=== PATIENT | female | born 1965 | race Caucasian/White ===

== ENCOUNTER 2024-05-22 13:51 | Emergency (ER) | payer SELFPAY ==
[2024-05-22 14:20] VITALS: BP 101/65
--- NOTE | 2024-05-22 14:49 | ED.MUSCINJ ---
HPI-Injury
General
Chief Complaint: Musculo-Skeletal Complaint
Source: patient
Exam Limitations: none
Time Seen by Provider: 05/22/24 14:44
Nursing documentation reviewed up to this point in time: agreed with
History of Present Illness-Injury
Initial Injury comments:
59-year-old female with no clinically significant past medical history states she missed a step at a restaurant about an hour and a half ago, fell, injuring her right ankle and her right thumb. She denies hitting her head or any other injury.
Past History
Past History
ED Past Medical History: Hypothyroidism
ED Past Surgical History: None
Social History
Tobacco: Non-smoker
Alcohol: None
Personal:
Living: with family
Employment: Employed (Realtor)
Review of Systems
Review of Systems
Allergies reviewed?: Yes
All Other Systems: ROS reviewed and negative except as documented in HPI and ROS
Musculoskeletal: Reports other (pain right ankle, right thumb)
Skin: Reports no symptoms
Musculoskeletal Injury Exam
Musculoskeletal Injury Exam
Right Lateral Ankle:
Pain with Movement?: Moderate
Tender to palpation?: Moderate
Soft tissue swelling?: Mild
Strain- Sprain- Tear (Connective tissue injury)?: Moderate
Joint instability?: No
Malalignment/deformity?: No
Range of motion: Limited
Distal skin color and temperature: normal-warm & good color
Capillary Refill: normal
Phy Exam
Physical Exam
Physical Exam:
PHYSICAL EXAMINATION:
General: no apparent distress, not acutely ill
Neuro: alert and oriented.
Psychiatric: well kept. interactive and cooperative
Musculoskeletal: Patient's right thumb is minimally tender to palpation, she has full range of motion there is no swelling. Moves with ease
Skin: Warm, pink.
Injury Course
Orders/Labs/Results
Orders:
Orders
05/22/24 14:06
Ankle, Right 3 view CR [CR Ankle - Right Min 3 Views *] Urgent
Comment:
Reason For Exam: injury
05/22/24 16:03
Jeremias Wrap Right-Treatment ONCE
Air Splint Right-Treatment ONCE
Procedures
Splint Check
Splint checked by provider?: Yes
Circulation/Movement/Sensation post splint application: brisk cap refill and full sensation
MDM/Problems Addressed
Differential Diagnosis Includes:
Sprain ankle, fractured ankle
Sprain thumb
MDM/Problems Addressed:
59-year-old female with no clinically significant past medical history states she missed a step at a restaurant about an hour and a half ago, fell, injuring her right ankle and her right thumb. She denies hitting her head or any other injury.
Patient's right thumb is minimally tender to palpation, there is no swelling or discoloration, she has full range of motion and distal neurovascular intact. She asks if we can skip the x-ray, this is reasonable.
xray R ankle initially read by this examiner: avulsion fx distal fibula
Jeremias wrap and air splint applied.
Patient is from out of town and has her own orthopedic doctor. She has a walker and a cane she can use in the meantime.
*Critical Care Note
Total Time (30-74mins, 75-104mins- exclusive of procedures): Not Applicable
ED Attending Note
-
Portions of this chart may have been created with voice recognition software.� Occasional wrong word or��sound alike� substitutions may have occurred due to the inherent limitations of voice recognition software.
Discharge Plan
Departure
Patient Disposition: Home (Routine Discharge)
Date of Disposition: 05/22/24
Time of Disposition: 16:04
Patient with high blood pressure during this ER visit?: No
Condition: Good
Discharge Problem:
Fall from slip, trip, or stumble, Closed fracture of distal end of right fibula, Sprain of right thumb
Instructions: Ankle Fracture (DC), Using Cold for Pain, Ankle air splint and elastic bandage
Referrals:
Your, Orthopedic doctor [Other] - Next open appointment
Ulisses Maurice, [Family Provider] -
Activity Restrictions/Additional Instructions:
As we discussed, you have a fracture of your ankle, wear the Jeremias wrap and air splint at all times when up and around till further instructed by your orthopedic doctor.
Use a walker or a cane until further instructed by your orthopedic doctor
Ibuprofen 600 mg, with food, every 6 hours as needed for pain
Interventions
Interventions:
*Risk Screen - Suicide Last Done: 05/22/24 13:58
*General Assessment Last Done: 05/22/24 13:58
*Neglect/Abuse Screening Last Done: 05/22/24 13:58
*Nursing Disposition Last Done: 05/22/24 16:36
ED-Musculoskeletal Assessment Last Done: 05/22/24 13:58
Discharge Date and Time
Discharge Date/Time: 05/22/24 16:37
Print Language: NEPALESE
[2024-05-22 16:36] VITALS: BP 110/65
== END 2024-05-22 16:37 | disposition home or self-care (01) ==
LOC: EMR 13:51
PROVIDERS: EMERGENCY PHYSICIAN Emergency Medicine; FAMILY PHYSICIAN Family Medicine
DX: S82.61XA Displaced fracture of lateral malleolus of right fibula, initial encounter for closed fracture (principal); S63.601A Unspecified sprain of right thumb, initial encounter; W17.89XA Other fall from one level to another, initial encounter; Y92.511 Restaurant or cafe as the place of occurrence of the external cause; E03.9 Hypothyroidism, unspecified
CPT/HCPCS: 99283; 29515; 73610